=== PATIENT | male | born 1960 | race Caucasian/White ===

== ENCOUNTER 2017-05-15 10:45 | Emergency (ER) | payer OTHER ==
[~2017-05-15] VITALS: Ht 175.3 cm; Wt 85.0 kg
[~2017-05-15 10:45] MED LIST: ASPIRIN325 MG PO; ASPIRIN81 M1 PO; CLARITIN10 MG PO; IMITREX100 MG; Imitrex PO; Keflex PO; LEXAPRO10 MG PO; SIMVASTATIN20 M1 PO; TOPAMAX25 MG PO
[2017-05-15 11:17] LABS: MCH 31.7 PG (29.0-34.0); MCV 90.6 FL (86-99); MEAN PLAT.VOLUME 9.1 uM^3 (9.0-12.4); PLATELET COUNT 190 K/uL (156-360); RBC DIS.WIDTH-CV 11.9 % (11.8-14.6); RBC DIS.WIDTH-SD 39.6 % (39-53); WHITE BLOOD COUNT 4.7 K/uL (4.1-10.2)
[2017-05-15 11:28] LABS: CHLORIDE 106 mEq/L (99-109); POTASSIUM 4.2 mEq/L (3.7-5.4); SODIUM 141 mEq/L (136-147)
[2017-05-15 11:30] LABS: GLUCOSE 95 mg/dL (70-99)
[2017-05-15 11:31] LABS: ANION GAP 10 MEQ/L (2-14)
[2017-05-15 11:32] LABS: TOTAL BILIRUBIN 0.6 mg/dL (0.0-1.0)
[2017-05-15 11:33] LABS: ALKALINE PHOSPHATASE 46 IU/L (3-129)
[2017-05-15 11:34] LABS: GFR ESTIMATE (CALCULATED) > 59 mL/min/
[2017-05-15 11:35] LABS: UREA NITROGEN (BUN) 18 mg/dL (9-23)
[2017-05-15 11:37] LABS: LIPASE 37 U/L (1.0-51.0)
[2017-05-15 12:28] LABS: ADD MIUA? NO; BILIRUBIN NEGATIVE; BLOOD NEGATIVE; COLOR YELLOW ((YELLOW)); GLUCOSE (STRIP) NEGATIVE; KETONES NEGATIVE; LEUKOCYTES NEGATIVE; NITRITE NEGATIVE; PROTEIN (STRIP) NEGATIVE; UROBILINOGEN 0.2 MG/DL (0.2-1.0)
[2017-05-15 12:30] LABS: UCUL ADDED? NO
[2017-05-15] MEDS ORDERED: BENTYL20 MG PO (12:36)
[2017-05-15] MEDS ORDERED: ZOFRAN ODT4 MG PO (15:49)
[2017-05-15 16:09] VITALS: BP 147/79
== END 2017-05-15 16:09 | disposition home or self-care (01) ==
LOC: EME 10:45
DX: N20.0 Calculus of kidney (principal); N28.1 Cyst of kidney, acquired; K59.00 Constipation, unspecified; E78.5 Hyperlipidemia, unspecified; G40.909 Epilepsy, unspecified, not intractable, without status epilepticus; Z88.6 Allergy status to analgesic agent; Z91.041 Radiographic dye allergy status
CPT/HCPCS: 74176; 76705; 80053; 81003; 83690; 85027; 99281; 99283

== ENCOUNTER 2017-05-22 12:48 | Emergency (ER) | payer OTHER ==
[~2017-05-22] VITALS: Ht 177.8 cm; Wt 84.1 kg
[~2017-05-22 12:48] MED LIST changes: +BENTYL20 MG PO; +ZOFRAN ODT4 MG PO
[2017-05-22 13:15] LABS: HEMATOCRIT 47.2 % (38.0-50.0); MCH 32.1 PG (29.0-34.0); MCHC 35.6 G/DL (30.0-36.0); MCV 90.2 FL (86-99); MEAN PLAT.VOLUME 9.1 uM^3 (9.0-12.4); PLATELET COUNT 200 K/uL (156-360); RBC DIS.WIDTH-CV 11.9 % (11.8-14.6); RBC DIS.WIDTH-SD 39.4 % (39-53); RED BLOOD COUNT 5.23 M/uL (4.00-5.50); WHITE BLOOD COUNT 5.3 K/uL (4.1-10.2)
[2017-05-22 13:29] LABS: CHLORIDE 106 mEq/L (99-109); SODIUM 142 mEq/L (136-147)
[2017-05-22 13:31] LABS: GLUCOSE 117 mg/dL (70-99)
[2017-05-22 13:32] LABS: ANION GAP 10 MEQ/L (2-14)
[2017-05-22 13:35] LABS: ALKALINE PHOSPHATASE 45 IU/L (3-129); GFR ESTIMATE (CALCULATED) > 59 mL/min/
[2017-05-22 13:36] LABS: UREA NITROGEN (BUN) 16 mg/dL (9-23)
[2017-05-22 14:02] LABS: LIPASE 36 U/L (1.0-51.0)
[2017-05-22 15:01] LABS: ADD MIUA? NO; BILIRUBIN NEGATIVE; BLOOD NEGATIVE; COLOR YELLOW ((YELLOW)); GLUCOSE (STRIP) NEGATIVE; KETONES NEGATIVE; LEUKOCYTES NEGATIVE; NITRITE NEGATIVE; PROTEIN (STRIP) NEGATIVE; SPECIFIC GRAVITY 1.019 (1.000-1.030); UCUL ADDED? NO; UROBILINOGEN 0.2 MG/DL (0.2-1.0)
[2017-05-22] MEDS ORDERED: COLACE100 MG PO (17:15)
[2017-05-22] MEDS ORDERED: BENTYL20 MG PO (17:15)
[2017-05-22 17:44] VITALS: BP 140/80
== END 2017-05-22 17:45 | disposition home or self-care (01) ==
LOC: EME 12:48
DX: K59.00 Constipation, unspecified (principal); N28.1 Cyst of kidney, acquired; E78.5 Hyperlipidemia, unspecified; F41.9 Anxiety disorder, unspecified; F32.9 Major depressive disorder, single episode, unspecified; G43.909 Migraine, unspecified, not intractable, without status migrainosus; R56.9 Unspecified convulsions
CPT/HCPCS: 74020; 76770; 80053; 81003; 83690; 85027; 99281; 99284

== ENCOUNTER → 2017-05-29 | Outpatient (CLI) | payer OTHER ==
[~2017-05-29] MED LIST changes: +COLACE100 MG PO
== END | disposition home or self-care (01) ==
LOC: NUC 10:30
DX: R10.11 Right upper quadrant pain (principal)
CPT/HCPCS: 78226; A9503